=== PATIENT | female | born 1970 | race Caucasian/White ===

== ENCOUNTER 2017-11-06 13:32 | Inpatient (IN) | payer MEDICAID ==
[~2017-11-06] VITALS: Ht 167.1 cm; Wt 65.1 kg
[2017-11-06] MEDS ORDERED: PANTOPRAZOLE 80 MG in SODIUM CHLORIDE 0.9% 50 ML IVPB ONE (14:00)
[2017-11-06 14:11] LABS: BASOPHILS # (AUTO) 0.04 x10^3/uL (0-0.1); BASOPHILS % (AUTO) 0 % (0-1); EOSINOPHILS # (AUTO) 0.08 x10^3/uL (0-0.4); EOSINOPHILS % (AUTO) 1 % (1-7); LYMPHOCYTES # (AUTO) 1.32 x10^3/uL (1-3.4); LYMPHOCYTES % (AUTO) 14 % (22-44); MD NO; MEAN CORPUSCULAR HEMOGLOBIN 34.4 pg (27.0-34.8); MEAN CORPUSCULAR HGB CONC 33.3 g/dL (32.4-35.8); MEAN CORPUSCULAR VOLUME 103.5 fL (80-100); MEAN PLATELET VOLUME 8.4 fL (7.4-10.4); MONOCYTES % (AUTO) 5 % (2-9); NEUTROPHILS # (AUTO) 7.83 x10^3/uL (1.8-6.8); NEUTROPHILS % (AUTO) 80 % (42-75); PLATELET COUNT 240 x10^3/uL (130-400); RED BLOOD COUNT 2.36 x10^6/uL (3.82-5.3); RED CELL DISTRIBUTION WIDTH 14.9 % (9.6-15.2)
[2017-11-06 14:21] LABS: ALBUMIN 2.4 g/dL (3.4-5.0); ANION GAP 11 mmol/L (5-15); CALCIUM 7.5 mg/dL (8.5-10.1); CHLORIDE 106 mmol/L (98-107)
[2017-11-06 14:25] LABS: ALANINE AMINOTRANSFERASE 38 U/L (12-78); ALKALINE PHOSPHATASE 104 U/L (45-117); BILIRUBIN,TOTAL 0.9 mg/dL (0.2-1.0); CREATININE 0.62 mg/dL (0.55-1.02); TOTAL PROTEIN 6.5 g/dL (6.4-8.2)
[2017-11-06] MEDS ORDERED: SODIUM CHLORIDE 0.9%, 500ML IVBOLUS ONE (15:00)
[2017-11-06] MEDS ORDERED: OMNIPAQUE 350 MG/ML, 100ML BOTTLE ONE (16:25)
[2017-11-06] MEDS ORDERED: POTASSIUM CHLORIDE 40 MEQ in SODIUM CHLORIDE 0.9% 500 ML IV ONE (17:00)
[2017-11-06] MEDS ORDERED: NS + 40MEQ KCL 1,000 ML IV SCH (17:30)
[2017-11-06] MEDS ORDERED: THIAMINE IV SCH (18:00)
[2017-11-06] MEDS ORDERED: ACETAMINOPHEN 325 MG TABLET PO PRN (18:00)
[2017-11-06] MEDS ORDERED: MAGNESIUM SULFATE PMX IV SCH (18:00)
[2017-11-06] MEDS ORDERED: POTASSIUM CHLORIDE IV SCH (18:00)
[2017-11-06] MEDS ORDERED: [UNRECOGNIZED DRUG - OTHER] IV SCH (18:00)
[2017-11-06] MEDS ORDERED: ONDANSETRON 2MG/ML, 2ML IVPush PRN (18:00)
[2017-11-06 18:27] VITALS: BP 89/54
[2017-11-06] MEDS ORDERED: CEFTRIAXONE 1,000 MG in SODIUM CHLORIDE 0.9% 50 ML IV ONE (18:30)
[2017-11-06] MEDS ORDERED: CEFTRIAXONE PMX 1GM/50ML 50 ML IV ONE (18:30)
[2017-11-06 19:26] LABS: INTERNATIONAL NORMALIZED RATIO 1.3 (0.93-1.1); PROTHROMBIN TIME 13.4 Seconds (9.6-11.5)
[2017-11-07 00:45] VITALS: BP 80/50
[2017-11-07 01:43] VITALS: BP 90/62
[2017-11-07] MEDS: THIAMINE IV SCH (03:38)
[2017-11-07] MEDS: POTASSIUM CHLORIDE IV SCH (03:38)
[2017-11-07] MEDS: MAGNESIUM SULFATE PMX IV SCH (03:38)
[2017-11-07] MEDS: [UNRECOGNIZED DRUG - OTHER] IV SCH (03:38)
[2017-11-07 05:36] LABS: ALANINE AMINOTRANSFERASE 30 U/L (12-78); ALBUMIN 1.9 g/dL (3.4-5.0); ANION GAP 6 mmol/L (5-15); CALCIUM 6.7 mg/dL (8.5-10.1); CHLORIDE 109 mmol/L (98-107); CREATININE 0.48 mg/dL (0.55-1.02)
[2017-11-07 05:38] LABS: ALKALINE PHOSPHATASE 89 U/L (45-117); BILIRUBIN,TOTAL 0.8 mg/dL (0.2-1.0); TOTAL PROTEIN 5.4 g/dL (6.4-8.2)
[2017-11-07 05:47] LABS: MEAN CORPUSCULAR HEMOGLOBIN 34.4 pg (27.0-34.8); MEAN CORPUSCULAR HGB CONC 33.1 g/dL (32.4-35.8); MEAN CORPUSCULAR VOLUME 103.8 fL (80-100); MEAN PLATELET VOLUME 8.6 fL (7.4-10.4); PLATELET COUNT 207 x10^3/uL (130-400); RED CELL DISTRIBUTION WIDTH 14.7 % (9.6-15.2)
[2017-11-07 06:11] LABS: BASOPHILS # (AUTO) 0.05 x10^3/uL (0-0.1); BASOPHILS % (AUTO) 1 % (0-1); EOSINOPHILS # (AUTO) 0.09 x10^3/uL (0-0.4); EOSINOPHILS % (AUTO) 1 % (1-7); LYMPHOCYTES # (AUTO) 1.48 x10^3/uL (1-3.4); LYMPHOCYTES % (AUTO) 19 % (22-44); MD SCAN; MONOCYTES # (AUTO) 0.55 x10^3/uL (0.2-0.8); MONOCYTES % (AUTO) 7 % (2-9); NEUTROPHILS # (AUTO) 5.85 x10^3/uL (1.8-6.8); NEUTROPHILS % (AUTO) 73 % (42-75)
[2017-11-07 06:56] LABS: CULTURE INDICATED? YES; MICROSCOPIC INDICATED
[2017-11-07] MEDS ORDERED: PANTOPROZOLE 40MG TABLET PO SCH (07:30)
[2017-11-07] MEDS ORDERED: CEFTRIAXONE PMX 1GM/50ML 50 ML IV ONE (08:00)
[2017-11-07 08:13] VITALS: BP_SYST 192; BP_SYST 92; BP_DIAS 54
[2017-11-07 14:30] VITALS: BP 97/65
[2017-11-07 15:56] LABS: CLOSTRIDIUM DIFFICILE ANTIGEN NEGATIVE; CLOSTRIDIUM DIFFICILE TOXIN NEGATIVE (Negative)
[2017-11-07 16:04] LABS: OCCULT BLOOD NEGATIVE (NEGATIVE)
[2017-11-07 19:04] VITALS: BP 82/42
[2017-11-08 01:18] VITALS: BP 91/70
[2017-11-08] MEDS: [UNRECOGNIZED DRUG - OTHER] IV SCH (04:09)
[2017-11-08] MEDS: MAGNESIUM SULFATE PMX IV SCH (04:09)
[2017-11-08] MEDS: THIAMINE IV SCH (04:09)
[2017-11-08] MEDS: POTASSIUM CHLORIDE IV SCH (04:09)
[2017-11-08 05:35] LABS: ALBUMIN 1.8 g/dL (3.4-5.0); ANION GAP 5 mmol/L (5-15); CALCIUM 7.8 mg/dL (8.5-10.1); CHLORIDE 106 mmol/L (98-107); CREATININE 0.36 mg/dL (0.55-1.02)
[2017-11-08 05:36] LABS: MEAN CORPUSCULAR HGB CONC 33.8 g/dL (32.4-35.8); MEAN CORPUSCULAR VOLUME 103.6 fL (80-100); MEAN PLATELET VOLUME 8.3 fL (7.4-10.4); PLATELET COUNT 256 x10^3/uL (130-400); RED CELL DISTRIBUTION WIDTH 15.2 % (9.6-15.2)
[2017-11-08 06:08] LABS: BASOPHILS # (AUTO) 0.04 x10^3/uL (0-0.1); BASOPHILS % (AUTO) 1 % (0-1); EOSINOPHILS # (AUTO) 0.14 x10^3/uL (0-0.4); EOSINOPHILS % (AUTO) 2 % (1-7); LYMPHOCYTES # (AUTO) 1.47 x10^3/uL (1-3.4); LYMPHOCYTES % (AUTO) 19 % (22-44); MD SCAN; MONOCYTES % (AUTO) 9 % (2-9); NEUTROPHILS # (AUTO) 5.46 x10^3/uL (1.8-6.8); NEUTROPHILS % (AUTO) 70 % (42-75)
[2017-11-08 06:50] VITALS: BP 90/61
[2017-11-08] MEDS: PANTOPRAZOLE 40 MG IV IVPush SCH ×2 (08:31→20:57)
[2017-11-08 14:33] VITALS: BP 83/59
[2017-11-08] MEDS: SUCRALFATE 1 GM/10 ML UDC PO SCH ×2 (17:31→20:57)
[2017-11-08 19:19] VITALS: BP 84/55
[2017-11-09 01:07] VITALS: BP 83/55
[2017-11-09] MEDS ORDERED: SODIUM CHLORIDE 0.9% 1,000ML IVBOLUS ONE (01:30)
[2017-11-09] MEDS: POTASSIUM CHLORIDE IV SCH (03:45)
[2017-11-09] MEDS: THIAMINE IV SCH (03:45)
[2017-11-09] MEDS: [UNRECOGNIZED DRUG - OTHER] IV SCH (03:45)
[2017-11-09] MEDS: MAGNESIUM SULFATE PMX IV SCH (03:45)
[2017-11-09 03:53] VITALS: BP 89/59
[2017-11-09 08:41] VITALS: BP 90/53
[2017-11-09] MEDS: SUCRALFATE 1 GM/10 ML UDC PO SCH ×4 (08:47→20:41)
[2017-11-09] MEDS: PANTOPRAZOLE 40 MG IV IVPush SCH (08:47)
[2017-11-09 12:53] VITALS: BP 85/58
[2017-11-09 20:00] VITALS: BP 92/58
[2017-11-09] MEDS: PANTOPROZOLE 40MG TABLET PO SCH (20:41)
[2017-11-10 02:00] VITALS: BP 91/65
[2017-11-10] MEDS: [UNRECOGNIZED DRUG - OTHER] IV SCH (04:15)
[2017-11-10] MEDS: THIAMINE IV SCH (04:15)
[2017-11-10] MEDS: POTASSIUM CHLORIDE IV SCH (04:15)
[2017-11-10] MEDS: MAGNESIUM SULFATE PMX IV SCH (04:15)
[2017-11-10 05:33] LABS: ALBUMIN 1.6 g/dL (3.4-5.0); ANION GAP 7 mmol/L (5-15); CALCIUM 7.9 mg/dL (8.5-10.1); CHLORIDE 107 mmol/L (98-107)
[2017-11-10 05:41] LABS: ALANINE AMINOTRANSFERASE 26 U/L (12-78); ALKALINE PHOSPHATASE 105 U/L (45-117); BILIRUBIN,TOTAL 0.4 mg/dL (0.2-1.0); CREATININE 0.43 mg/dL (0.55-1.02); TOTAL PROTEIN 5.3 g/dL (6.4-8.2)
[2017-11-10 06:13] LABS: BASOPHILS # (AUTO) 0.04 x10^3/uL (0-0.1); BASOPHILS % (AUTO) 1 % (0-1); EOSINOPHILS # (AUTO) 0.28 x10^3/uL (0-0.4); EOSINOPHILS % (AUTO) 5 % (1-7); LYMPHOCYTES # (AUTO) 1.47 x10^3/uL (1-3.4); LYMPHOCYTES % (AUTO) 28 % (22-44); MD NO; MEAN CORPUSCULAR VOLUME 102.8 fL (80-100); MEAN PLATELET VOLUME 8.3 fL (7.4-10.4); MONOCYTES # (AUTO) 0.44 x10^3/uL (0.2-0.8); MONOCYTES % (AUTO) 8 % (2-9); NEUTROPHILS # (AUTO) 3.08 x10^3/uL (1.8-6.8); NEUTROPHILS % (AUTO) 58 % (42-75); PLATELET COUNT 348 x10^3/uL (130-400); RED BLOOD COUNT 2.19 x10^6/uL (3.82-5.3); RED CELL DISTRIBUTION WIDTH 15.4 % (9.6-15.2)
[2017-11-10 07:10] VITALS: BP 83/48
[2017-11-10] MEDS: PANTOPROZOLE 40MG TABLET PO SCH (07:11)
[2017-11-10] MEDS: SUCRALFATE 1 GM/10 ML UDC PO SCH ×2 (07:11→11:24)
[2017-11-10] MEDS ORDERED: MULTIVITAMINS/MINERALS TABLET PO SCH (09:30)
[2017-11-10] MEDS ORDERED: ONDANSETRON ODT 4 MG PO PRN (09:30)
[2017-11-10] MEDS ORDERED: FERROUS SULFATE 220 MG/5 ML ORAL SOL PO SCH (09:30)
[2017-11-10 11:01] VITALS: BP 90/61
[2017-11-10] MEDS ORDERED: PANT40TA5 PO (11:20)
[2017-11-10] MEDS ORDERED: ONDA4TAB13 PO (11:20)
[2017-11-10] MEDS ORDERED: SUCR1ORA5 PO (11:20)
[2017-11-10] MEDS ORDERED: FERR220S6 PO (11:20)
[2017-11-10] MEDS ORDERED: MULT-484 PO (11:20)
== END 2017-11-10 11:55 | disposition home or self-care (01) | DRG 391 ==
LOC: ED 14:56 → EDIP 16:53 → SUATTDRO 17:18 → 3NE 17:48 → 4WST 20:38 → DCLOUNGE 11-10 11:42
PROVIDERS: ADMIT Internal Medicine; ATTEND Internal Medicine
DX: K21.0 Gastro-esophageal reflux disease with esophagitis (principal); E43 Unspecified severe protein-calorie malnutrition; I95.89 Other hypotension; J90 Pleural effusion, not elsewhere classified; R64 Cachexia; I31.3 Pericardial effusion (noninflammatory); E87.1 Hypo-osmolality and hyponatremia; J98.11 Atelectasis; N39.0 Urinary tract infection, site not specified; D50.9 Iron deficiency anemia, unspecified; D63.8 Anemia in other chronic diseases classified elsewhere; E87.6 Hypokalemia; F10.20 Alcohol dependence, uncomplicated; F32.9 Major depressive disorder, single episode, unspecified; K70.30 Alcoholic cirrhosis of liver without ascites; K80.20 Calculus of gallbladder without cholecystitis without obstruction; R13.10 Dysphagia, unspecified; Z68.23 Body mass index [BMI] 23.0-23.9, adult
CPT/HCPCS: 36415; 71045; 74177; 74220; 80048; 80053; 80307; 81001; 82040; 82272; 82533; 83690; 83735; 84100; 85025; 85610; 86850; 86900; 87040; 87086; 87324; 99285; J0696; J3411; J3480; J7042; Q9967; C9113; J3475; J7030; J7040

== ENCOUNTER 2018-11-06 00:11 | Inpatient (IN) | payer MEDICAID ==
[~2018-11-06] VITALS: Ht 172.7 cm; Wt 43.1 kg
[~2018-11-06 00:11] MED LIST: FERR220S6 PO; MULT-484 PO; ONDA4TAB13 PO; PANT40TA5 PO; SUCR1ORA5 PO
--- NOTE | 2018-11-06 00:32 | NUR ---
PT TO US VIA STRETCHER
[2018-11-06 00:43] LABS: BASOPHILS # (AUTO) 0.15 x10^3/uL (0-0.1); BASOPHILS % (AUTO) 2 % (0-1); EOSINOPHILS # (AUTO) 0.11 x10^3/uL (0-0.4); EOSINOPHILS % (AUTO) 2 % (1-7); LYMPHOCYTES # (AUTO) 1.52 x10^3/uL (1-3.4); LYMPHOCYTES % (AUTO) 23 % (22-44); MD NO; MEAN CORPUSCULAR HEMOGLOBIN 36.8 pg (27.0-34.8); MEAN CORPUSCULAR HGB CONC 33.7 g/dL (32.4-35.8); MEAN CORPUSCULAR VOLUME 109.4 fL (80-100); MEAN PLATELET VOLUME 7.4 fL (7.4-10.4); MONOCYTES # (AUTO) 0.53 x10^3/uL (0.2-0.8); MONOCYTES % (AUTO) 8 % (2-9); NEUTROPHILS # (AUTO) 4.39 x10^3/uL (1.8-6.8); NEUTROPHILS % (AUTO) 66 % (42-75); PLATELET COUNT 191 x10^3/uL (130-400); RED BLOOD COUNT 2.42 x10^6/uL (3.82-5.3); RED CELL DISTRIBUTION WIDTH 18.7 % (9.6-15.2)
[2018-11-06 00:52] LABS: ALANINE AMINOTRANSFERASE 16 U/L (12-78); ANION GAP 8 mmol/L (5-15); CHLORIDE 97 mmol/L (98-107); CREATININE 0.55 mg/dL (0.55-1.02)
[2018-11-06 00:54] LABS: ALKALINE PHOSPHATASE 117 U/L (45-117); BILIRUBIN,TOTAL 1.7 mg/dL (0.2-1.0); TOTAL PROTEIN 6.2 g/dL (6.4-8.2)
--- NOTE | 2018-11-06 01:22 | NUR ---
Pt ambulated to bathroom, urine cup in hand and urine sample requested.
--- NOTE | 2018-11-06 01:42 | NUR ---
URINE TO LAB AWAITING ADMIT
[2018-11-06] MEDS ORDERED: CEFTRIAXONE PMX 1GM/50ML 50 ML ONE (01:49)
[2018-11-06 01:51] LABS: CULTURE INDICATED? YES; MICROSCOPIC AUTO
--- NOTE | 2018-11-06 01:53 | NUR ---
PT WITH [facility] RUNNING ORDERED.
[2018-11-06] MEDS ORDERED: CEFTRIAXONE PMX 1GM/50ML 50 ML IV ONE (02:00)
--- NOTE | 2018-11-06 02:04 | NUR ---
PA AT BEDSIDE.
--- NOTE | 2018-11-06 02:19 | NUR ---
REPORT CALLED TO [facility] PT READY FOR TRANSPORT.
[2018-11-06 02:47] VITALS: BP 80/53
[2018-11-06] MEDS ORDERED: ACETAMINOPHEN 325 MG TABLET PO PRN (03:00)
[2018-11-06] MEDS ORDERED: POLYETHYLENE GLYCOL 17 GM PACKET PO PRN (03:00)
[2018-11-06] MEDS ORDERED: THIAMINE 200 MG in DEXTROSE 5% 50 ML IVPB ONE (03:00)
[2018-11-06] MEDS ORDERED: ONDANSETRON 2MG/ML, 2ML IVPush PRN (03:00)
[2018-11-06] MEDS ORDERED: FOLIC ACID 1 MG TABLET PO ONE (03:00)
[2018-11-06] MEDS ORDERED: LABETALOL 5MG/ML, 20ML IVPush PRN (03:00)
[2018-11-06] MEDS: CEFTRIAXONE PMX 1GM/50ML 50 ML IV SCH (03:00)
[2018-11-06] MEDS: SODIUM CHLORIDE 0.9% 1,000 ML IV SCH ×2 (03:01→10:16)
[2018-11-06 03:05] LABS: INTERNATIONAL NORMALIZED RATIO 1.35 (0.93-1.1)
[2018-11-06 03:18] LABS: THYROID STIMULATING HORMONE 7.96 mIU/L (0.358-3.740)
[2018-11-06 06:05] LABS: ANION GAP 6 mmol/L (5-15); CALCIUM 7.2 mg/dL (8.5-10.1); CHLORIDE 99 mmol/L (98-107)
[2018-11-06 06:45] VITALS: BP 81/51
[2018-11-06] MEDS: MULTIVITAMINS/MINERALS TABLET PO SCH (08:14)
[2018-11-06] MEDS: ENOXAPARIN 30 MG/0.3 ML SQ SCH (08:14)
[2018-11-06] MEDS: SENNA/DOCUSATE TABLET PO SCH (08:14)
[2018-11-06] MEDS ORDERED: LORazepam 2 MG/ML, 1ML IV PRN ×5 (12:00)
[2018-11-06] MEDS ORDERED: LORazepam 0.5MG TABLET PO PRN (12:00)
[2018-11-06] MEDS ORDERED: LORazepam 1MG TABLET PO PRN ×4 (12:00)
[2018-11-06] MEDS ORDERED: POTASSIUM CHLORIDE 10% 40 MEQ/30 ML UDC PO ONE ×2 (12:00→16:00)
[2018-11-06] MEDS: POTASSIUM CHLORIDE 20 MEQ, MAGNESIUM SULFATE 1 GM, FOLIC ACID 1 MG, THIAMINE 200 MG, MV... IV SCH (14:41)
[2018-11-06] MEDS: NEUTRA PHOS K 250 MG TABLET PO SCH ×3 (14:49→21:23)
[2018-11-06 15:52] LABS: ANION GAP 8 mmol/L (5-15); CALCIUM 6.8 mg/dL (8.5-10.1); CHLORIDE 99 mmol/L (98-107); CREATININE 0.52 mg/dL (0.55-1.02)
[2018-11-06 16:45] VITALS: BP 82/57
[2018-11-06 18:42] VITALS: BP 84/53
[2018-11-06] MEDS ORDERED: POTASSIUM CHLORIDE 20 MEQ TAB.ER.PRT PO ONE (19:30)
[2018-11-06] MEDS: KETOROLAC 30 MG/1 ML IV PRN (21:23)
[2018-11-07 00:23] VITALS: BP 84/50
[2018-11-07] MEDS: morphine SULFATE 10 MG/ML, 1ML IVPush PRN ×2 (02:28→03:08)
[2018-11-07] MEDS: CEFTRIAXONE PMX 1GM/50ML 50 ML IV SCH (03:04)
[2018-11-07] MEDS: KETOROLAC 30 MG/1 ML IV PRN (05:16)
[2018-11-07 05:27] LABS: MEAN CORPUSCULAR HEMOGLOBIN 36.5 pg (27.0-34.8); MEAN CORPUSCULAR HGB CONC 32.8 g/dL (32.4-35.8); MEAN CORPUSCULAR VOLUME 111.2 fL (80-100); MEAN PLATELET VOLUME 7.5 fL (7.4-10.4); PLATELET COUNT 193 x10^3/uL (130-400); RED CELL DISTRIBUTION WIDTH 19.4 % (9.6-15.2)
[2018-11-07 05:41] LABS: ANION GAP 5 mmol/L (5-15); CHLORIDE 101 mmol/L (98-107)
[2018-11-07 05:44] LABS: ALANINE AMINOTRANSFERASE 13 U/L (12-78); ALKALINE PHOSPHATASE 106 U/L (45-117); CREATININE 0.56 mg/dL (0.55-1.02); TOTAL PROTEIN 5.9 g/dL (6.4-8.2)
[2018-11-07 06:12] LABS: BASOPHILS # (AUTO) 0.03 x10^3/uL (0-0.1); BASOPHILS % (AUTO) 1 % (0-1); EOSINOPHILS # (AUTO) 0.21 x10^3/uL (0-0.4); EOSINOPHILS % (AUTO) 3 % (1-7); LYMPHOCYTES # (AUTO) 1.45 x10^3/uL (1-3.4); LYMPHOCYTES % (AUTO) 23 % (22-44); MD SCAN; MONOCYTES # (AUTO) 0.48 x10^3/uL (0.2-0.8); MONOCYTES % (AUTO) 8 % (2-9); NEUTROPHILS # (AUTO) 4.09 x10^3/uL (1.8-6.8); NEUTROPHILS % (AUTO) 65 % (42-75)
[2018-11-07 08:00] VITALS: BP 76/50
[2018-11-07] MEDS: ENOXAPARIN 30 MG/0.3 ML SQ SCH (09:51)
[2018-11-07] MEDS: SENNA/DOCUSATE TABLET PO SCH (09:52)
[2018-11-07] MEDS: MULTIVITAMINS/MINERALS TABLET PO SCH (09:52)
[2018-11-07] MEDS ORDERED: LIDOCAINE-MPF 1%, 5ML ONE (10:10)
[2018-11-07 12:41] LABS: CELLS COUNTED 86
[2018-11-07] MEDS: ALBUMIN HUMAN 25% 100 ML IV SCH ×2 (12:42→18:38)
[2018-11-07 14:00] VITALS: BP 59/38
[2018-11-07] MEDS: POTASSIUM CHLORIDE 20 MEQ, MAGNESIUM SULFATE 1 GM, FOLIC ACID 1 MG, THIAMINE 200 MG, MV... IV SCH (14:08)
[2018-11-07 19:06] VITALS: BP 75/48
[2018-11-07 20:09] VITALS: BP 82/57
[2018-11-08] VITALS (14 sets, daily range): BP systolic 64–88; BP diastolic 30–58
[2018-11-08] MEDS: ALBUMIN HUMAN 25% 100 ML IV SCH ×4 (00:27→18:19)
[2018-11-08] MEDS: CEFTRIAXONE PMX 1GM/50ML 50 ML IV SCH (03:05)
[2018-11-08 05:39] LABS: CHLORIDE 103 mmol/L (98-107)
[2018-11-08 05:43] LABS: MEAN CORPUSCULAR HEMOGLOBIN 36.7 pg (27.0-34.8); MEAN CORPUSCULAR HGB CONC 33.2 g/dL (32.4-35.8); MEAN CORPUSCULAR VOLUME 110.6 fL (80-100); MEAN PLATELET VOLUME 7.3 fL (7.4-10.4); PLATELET COUNT 166 x10^3/uL (130-400); RED BLOOD COUNT 1.88 x10^6/uL (3.82-5.3); RED CELL DISTRIBUTION WIDTH 19.8 % (9.6-15.2)
[2018-11-08 05:46] LABS: HEMOGRAM NOTE RECHECKED
[2018-11-08 05:50] LABS: ALANINE AMINOTRANSFERASE 10 U/L (12-78); ALBUMIN 1.7 g/dL (3.4-5.0); ALKALINE PHOSPHATASE 81 U/L (45-117); ANION GAP 5 mmol/L (5-15); BILIRUBIN,TOTAL 0.7 mg/dL (0.2-1.0); CALCIUM 7.1 mg/dL (8.5-10.1); CREATININE 0.51 mg/dL (0.55-1.02); TOTAL PROTEIN 5.2 g/dL (6.4-8.2)
[2018-11-08 06:07] LABS: BASOPHILS # (AUTO) 0.07 x10^3/uL (0-0.1); BASOPHILS % (AUTO) 2 % (0-1); EOSINOPHILS # (AUTO) 0.13 x10^3/uL (0-0.4); EOSINOPHILS % (AUTO) 3 % (1-7); LYMPHOCYTES # (AUTO) 1.26 x10^3/uL (1-3.4); LYMPHOCYTES % (AUTO) 30 % (22-44); MD SCAN; MONOCYTES # (AUTO) 0.28 x10^3/uL (0.2-0.8); MONOCYTES % (AUTO) 7 % (2-9); NEUTROPHILS # (AUTO) 2.46 x10^3/uL (1.8-6.8); NEUTROPHILS % (AUTO) 59 % (42-75)
[2018-11-08] MEDS ORDERED: ENOXAPARIN 40 MG/0.4 ML SQ SCH (09:00)
[2018-11-08] MEDS: LACTULOSE 20 GM/30 ML UDC PO SCH ×2 (09:16→20:47)
[2018-11-08] MEDS: FOLIC ACID 1 MG TABLET PO SCH (09:16)
[2018-11-08] MEDS: THIAMINE 100MG TABLET PO SCH (09:16)
[2018-11-08] MEDS: MULTIVITAMINS/MINERALS TABLET PO SCH (09:16)
[2018-11-08] MEDS: RIFAXIMIN 550 MG TABLET PO SCH ×2 (09:16→20:47)
[2018-11-08] MEDS: SENNA/DOCUSATE TABLET PO SCH (09:16)
[2018-11-08] MEDS ORDERED: OMNIPAQUE 350 MG/ML, 100ML BOTTLE ONE (12:21)
[2018-11-09] MEDS: ALBUMIN HUMAN 25% 100 ML IV SCH ×4 (00:16→18:37)
[2018-11-09 00:21] VITALS: BP 83/49
[2018-11-09] MEDS: CEFTRIAXONE PMX 1GM/50ML 50 ML IV SCH (02:51)
[2018-11-09 05:15] LABS: ALANINE AMINOTRANSFERASE 14 U/L (12-78); ALBUMIN 2.5 g/dL (3.4-5.0); ANION GAP 6 mmol/L (5-15); CALCIUM 7.6 mg/dL (8.5-10.1); CHLORIDE 105 mmol/L (98-107); CREATININE 0.43 mg/dL (0.55-1.02); MEAN CORPUSCULAR HGB CONC 33.7 g/dL (32.4-35.8); MEAN CORPUSCULAR VOLUME 106.9 fL (80-100); PLATELET COUNT 170 x10^3/uL (130-400); RED BLOOD COUNT 2.12 x10^6/uL (3.82-5.3); RED CELL DISTRIBUTION WIDTH 21.5 % (9.6-15.2)
[2018-11-09 05:18] LABS: ALKALINE PHOSPHATASE 74 U/L (45-117); BILIRUBIN,TOTAL 0.9 mg/dL (0.2-1.0); TOTAL PROTEIN 5.1 g/dL (6.4-8.2)
[2018-11-09 05:59] LABS: BASOPHILS # (AUTO) 0.03 x10^3/uL (0-0.1); BASOPHILS % (AUTO) 1 % (0-1); EOSINOPHILS # (AUTO) 0.14 x10^3/uL (0-0.4); EOSINOPHILS % (AUTO) 4 % (1-7); LYMPHOCYTES # (AUTO) 1.06 x10^3/uL (1-3.4); LYMPHOCYTES % (AUTO) 25 % (22-44); MD SCAN; MONOCYTES # (AUTO) 0.31 x10^3/uL (0.2-0.8); MONOCYTES % (AUTO) 8 % (2-9); NEUTROPHILS # (AUTO) 2.65 x10^3/uL (1.8-6.8); NEUTROPHILS % (AUTO) 63 % (42-75)
[2018-11-09 07:00] VITALS: BP 79/42
[2018-11-09] MEDS: RIFAXIMIN 550 MG TABLET PO SCH ×2 (08:41→20:45)
[2018-11-09] MEDS: THIAMINE 100MG TABLET PO SCH (08:42)
[2018-11-09] MEDS: SENNA/DOCUSATE TABLET PO SCH (08:42)
[2018-11-09] MEDS: MULTIVITAMINS/MINERALS TABLET PO SCH (08:42)
[2018-11-09] MEDS: LACTULOSE 20 GM/30 ML UDC PO SCH ×2 (08:42→20:43)
[2018-11-09] MEDS: FOLIC ACID 1 MG TABLET PO SCH (08:42)
[2018-11-09 12:00] VITALS: BP 80/45
[2018-11-09 20:24] VITALS: BP 88/56
[2018-11-10] MEDS: ALBUMIN HUMAN 25% 100 ML IV SCH ×4 (00:41→18:54)
[2018-11-10 01:18] VITALS: BP 92/54
[2018-11-10] MEDS: CEFTRIAXONE PMX 1GM/50ML 50 ML IV SCH (02:42)
[2018-11-10 07:32] VITALS: BP 84/43
[2018-11-10 08:10] LABS: BASOPHILS # (AUTO) 0.02 x10^3/uL (0-0.1); BASOPHILS % (AUTO) 1 % (0-1); EOSINOPHILS # (AUTO) 0.11 x10^3/uL (0-0.4); EOSINOPHILS % (AUTO) 3 % (1-7); LYMPHOCYTES # (AUTO) 1.01 x10^3/uL (1-3.4); LYMPHOCYTES % (AUTO) 29 % (22-44); MD NO; MEAN CORPUSCULAR HEMOGLOBIN 35.8 pg (27.0-34.8); MEAN CORPUSCULAR HGB CONC 33.3 g/dL (32.4-35.8); MEAN CORPUSCULAR VOLUME 107.5 fL (80-100); MEAN PLATELET VOLUME 6.4 fL (7.4-10.4); MONOCYTES # (AUTO) 0.25 x10^3/uL (0.2-0.8); MONOCYTES % (AUTO) 7 % (2-9); NEUTROPHILS % (AUTO) 60 % (42-75); PLATELET COUNT 188 x10^3/uL (130-400); RED BLOOD COUNT 2.24 x10^6/uL (3.82-5.3)
[2018-11-10 08:18] LABS: ALANINE AMINOTRANSFERASE 15 U/L (12-78); ALBUMIN 3.3 g/dL (3.4-5.0); ANION GAP 8 mmol/L (5-15); CALCIUM 7.8 mg/dL (8.5-10.1); CHLORIDE 106 mmol/L (98-107); CREATININE 0.46 mg/dL (0.55-1.02)
[2018-11-10 08:21] LABS: ALKALINE PHOSPHATASE 62 U/L (45-117); BILIRUBIN,TOTAL 0.8 mg/dL (0.2-1.0); TOTAL PROTEIN 5.6 g/dL (6.4-8.2)
[2018-11-10] MEDS: SENNA/DOCUSATE TABLET PO SCH (09:00)
[2018-11-10] MEDS: LACTULOSE 20 GM/30 ML UDC PO SCH ×2 (09:00→19:46)
[2018-11-10] MEDS: THIAMINE 100MG TABLET PO SCH (09:53)
[2018-11-10] MEDS: MULTIVITAMINS/MINERALS TABLET PO SCH (09:53)
[2018-11-10] MEDS: RIFAXIMIN 550 MG TABLET PO SCH ×2 (09:53→19:46)
[2018-11-10] MEDS: FOLIC ACID 1 MG TABLET PO SCH (09:53)
[2018-11-10 13:57] VITALS: BP 84/51
[2018-11-10 18:42] VITALS: BP 89/58
[2018-11-11] MEDS: ALBUMIN HUMAN 25% 100 ML IV SCH ×4 (00:32→17:57)
[2018-11-11 01:29] VITALS: BP 91/53
[2018-11-11] MEDS: CEFTRIAXONE PMX 1GM/50ML 50 ML IV SCH (03:01)
[2018-11-11 05:38] LABS: ALBUMIN 3.3 g/dL (3.4-5.0); ANION GAP 6 mmol/L (5-15); CALCIUM 7.9 mg/dL (8.5-10.1); CHLORIDE 108 mmol/L (98-107)
[2018-11-11 05:41] LABS: MEAN CORPUSCULAR HEMOGLOBIN 36.6 pg (27.0-34.8); MEAN CORPUSCULAR VOLUME 107.7 fL (80-100); MEAN PLATELET VOLUME 6.3 fL (7.4-10.4); PLATELET COUNT 189 x10^3/uL (130-400); RED BLOOD COUNT 2.09 x10^6/uL (3.82-5.3); RED CELL DISTRIBUTION WIDTH 20.7 % (9.6-15.2)
[2018-11-11 05:43] LABS: ALANINE AMINOTRANSFERASE 18 U/L (12-78); ALKALINE PHOSPHATASE 64 U/L (45-117); BILIRUBIN,TOTAL 0.8 mg/dL (0.2-1.0); CREATININE 0.45 mg/dL (0.55-1.02); TOTAL PROTEIN 5.5 g/dL (6.4-8.2)
[2018-11-11 06:12] LABS: BASOPHILS # (AUTO) 0.03 x10^3/uL (0-0.1); BASOPHILS % (AUTO) 1 % (0-1); EOSINOPHILS # (AUTO) 0.08 x10^3/uL (0-0.4); EOSINOPHILS % (AUTO) 2 % (1-7); LYMPHOCYTES # (AUTO) 1.01 x10^3/uL (1-3.4); LYMPHOCYTES % (AUTO) 24 % (22-44); MD SCAN; MONOCYTES # (AUTO) 0.35 x10^3/uL (0.2-0.8); MONOCYTES % (AUTO) 8 % (2-9); NEUTROPHILS # (AUTO) 2.78 x10^3/uL (1.8-6.8); NEUTROPHILS % (AUTO) 65 % (42-75)
[2018-11-11 08:00] VITALS: BP 84/59
[2018-11-11] MEDS: SENNA/DOCUSATE TABLET PO SCH (08:51)
[2018-11-11] MEDS: LACTULOSE 20 GM/30 ML UDC PO SCH ×2 (08:51→19:46)
[2018-11-11] MEDS: RIFAXIMIN 550 MG TABLET PO SCH ×2 (08:59→19:50)
[2018-11-11] MEDS: FOLIC ACID 1 MG TABLET PO SCH (08:59)
[2018-11-11] MEDS: MULTIVITAMINS/MINERALS TABLET PO SCH (08:59)
[2018-11-11] MEDS: THIAMINE 100MG TABLET PO SCH (08:59)
[2018-11-11] MEDS: SPIRONOLACTONE 25 MG TABLET PO SCH (12:30)
[2018-11-11 15:33] VITALS: BP 83/43
[2018-11-11] MEDS ORDERED: FOLI-17 PO (16:29)
[2018-11-11] MEDS ORDERED: LACT20SO13 PO (16:29)
[2018-11-11] MEDS ORDERED: THIA100T67 PO (16:29)
[2018-11-11] MEDS ORDERED: RIFA550T4 PO (16:29)
[2018-11-11 17:51] VITALS: BP_SYST 100; BP_SYST 79; BP_SYST 84; BP_DIAS 45; BP_DIAS 62; BP_DIAS 72
[2018-11-11 19:42] VITALS: BP 82/51
[2018-11-12] MEDS: ALBUMIN HUMAN 25% 100 ML IV SCH ×2 (00:40→06:20)
[2018-11-12 01:30] VITALS: BP 99/67
[2018-11-12] MEDS: CEFTRIAXONE PMX 1GM/50ML 50 ML IV SCH (03:05)
[2018-11-12 07:20] VITALS: BP 133/58
[2018-11-12] MEDS: SENNA/DOCUSATE TABLET PO SCH (07:33)
[2018-11-12] MEDS: LACTULOSE 20 GM/30 ML UDC PO SCH (07:33)
[2018-11-12] MEDS: FOLIC ACID 1 MG TABLET PO SCH (08:58)
[2018-11-12] MEDS: SPIRONOLACTONE 25 MG TABLET PO SCH (08:58)
[2018-11-12] MEDS: THIAMINE 100MG TABLET PO SCH (08:59)
[2018-11-12] MEDS: MULTIVITAMINS/MINERALS TABLET PO SCH (08:59)
[2018-11-12] MEDS: RIFAXIMIN 550 MG TABLET PO SCH (08:59)
== END 2018-11-12 10:16 | disposition home or self-care (01) | DRG 640 ==
LOC: ED 00:17 → EDIP 01:40 → 3NE 02:36 → DCLOUNGE 11-12 10:10
PROVIDERS: ADMIT Family Medicine; ATTEND Family Medicine
PROC: 0W9G3ZZ Drainage of Peritoneal Cavity, Percutaneous Approach (ICD-10-PCS; principal; 2018-11-07)
PROC: 30233N1 Transfusion of Nonautologous Red Blood Cells into Peripheral Vein, Percutaneous Approach (ICD-10-PCS; 2018-11-08)
DX: E87.1 Hypo-osmolality and hyponatremia (principal); E43 Unspecified severe protein-calorie malnutrition; Z68.1 Body mass index [BMI] 19.9 or less, adult; K76.6 Portal hypertension; N39.0 Urinary tract infection, site not specified; F10.239 Alcohol dependence with withdrawal, unspecified; L89.151 Pressure ulcer of sacral region, stage 1; D50.9 Iron deficiency anemia, unspecified; D53.1 Other megaloblastic anemias, not elsewhere classified; E87.6 Hypokalemia; F17.210 Nicotine dependence, cigarettes, uncomplicated; G89.29 Other chronic pain; K22.9 Disease of esophagus, unspecified; K70.9 Alcoholic liver disease, unspecified; K70.30 Alcoholic cirrhosis of liver without ascites; L05.91 Pilonidal cyst without abscess; R62.7 Adult failure to thrive; Z83.3 Family history of diabetes mellitus; E87.70 Fluid overload, unspecified
CPT/HCPCS: 36415; 82945; 99285; J7121; 49083; 71260; 72193; 74177; 76700; 80048; 80053; 81001; 82140; 82550; 82607; 83735; 84100; 84443; 85025; 85610; 86850; 86900; 86923; 87040; 87070; 87077; 87086; 87186; 87205; 89051; 96365; G0378; J0696; J1650; J1885; J3411; J3475; J3480; P9047; Q9967; 92523-GN; J2270; J7030; P9016